=== PATIENT | male | born 1975 | race Caucasian/White ===

== ENCOUNTER 2016-04-01 14:39 | Emergency (ER) | payer BC, OTHER ==
[2016-04-01 14:45] VITALS: RESP 16; TEMP 97.3; O2SAT 98
--- NOTE | 2016-04-01 14:55 | CPEKG ---
Heart Rate: 58 RR Interval: 1034 P-R Interval: 192 QRSD Interval: 104 QT Interval: 428 QTC Interval: 421 P Henry: 45 QRS Henry: -4 T Wave Henry: 11 EKG Severity - NORMAL ECG - EKG Impression: SINUS RHYTHM Electronically Signed By: Kinga Melgar 01-Apr-2016 21:39:06
[2016-04-01 15:17] LABS: % IMMATURE GRANULYOCYTES 0.2 % (0.0-1.1); ABSOLUTE IMMATURE GRANULOCYTES 0.01 10^3/uL (0.00-0.10); ADD DIFF? NO; ADD MORPH? NO; ADD SCAN? NO; ATYPICAL LYMPHOCYTE FLAG 10 (0-99); FRAGMENT RBC FLAG 0 (0-99); HEMATOCRIT 44.6 % (40.0-51.0); HEMOGLOBIN 15.9 g/dL (13.7-17.5); LEFT SHIFT FLG 0 (0-99); LIPEMIA HEMOLYSIS FLAG 90 (0-99); MEAN CELL HEMOGLOBIN CONCENTR. 35.7 g/dL (32.4-36.7); MEAN CELL VOLUME 92.5 fL (81.5-99.8); MEAN PLATELET VOLUME 9.5 fL (8.7-11.7); PLATELET CLUMPS FLAG 10 (0-99); PLATELET COUNT 189 10^3/uL (150-400); RED BLOOD CELL COUNT 4.82 10^6/uL (4.40-6.38); RED CELL DISTRIBUTION WIDTH 11.7 % (11.5-15.2)
--- NOTE | 2016-04-01 15:21 | EDPHY ---
H & P Time Seen by Provider: 04/01/16 15:01 HPI/ROS: CHIEF COMPLAINT: Chest pain HISTORY OF PRESENT ILLNESS: The patient is a 40 year old male presenting to the ED with intermittent chest pain for the past 3 weeks. His pain is moderate in severity. It is localized to the left side and lasts for a few seconds. His pain occurs while at rest and is worse with deep inhalation. He has 0-2 episodes daily. He denies shortness of breath, increased fatigue, fever, or recent sickness. The patient was recently treated for SIBO and originally attributed his symptoms to gas. He also complains of intermittent right upper thigh pain. It is a dull ache that does not occur with exertion nor does it seem to coincide with the chest pain. He denies lower extremity swelling. He has no family cardiac history. REVIEW OF SYSTEMS: Aside from elements discussed in the HPI, a comprehensive 10-point review of systems was reviewed and is negative. Past Medical/Surgical History: TBI 2015, SIBO, High cholesterol Social History: Nonsmoker. Lives in [place]. Smoking Status: Never smoked Physical Exam: General Appearance: Alert, no distress Eyes: Pupils equal and round, no conjunctival pallor or injection ENT, Mouth: Mucous membranes moist Neck: Normal inspection Respiratory: Lungs are clear to auscultation Cardiovascular: Regular rate and rhythm Gastrointestinal: Abdomen is soft and non-tender Neurological: A&O, nonfocal, normal gait Skin: Warm and dry, no rash Extremities: Nontender, no pedal edema. Negative Homans sign. Right hip is nontender, normal range of motion without pain. Psychiatric: Mood and affect normal Constitutional: Initial Vital Signs Temperature (C) 36.3 C 04/01/16 14:41 Heart Rate 66 04/01/16 14:41 Respiratory Rate 16 04/01/16 14:41 Blood Pressure 129/79 H 04/01/16 14:41 O2 Sat (%) 98 04/01/16 14:41 O2 Delivery Mode Room Air Allergies/Adverse Reactions: No Known Allergies Allergy (Unverified 04/01/16 14:46) Home Medications: Medication Instructions Recorded Valtrex 04/01/16 Medical Decision Making - Diagnostics EKG Interpretation: EKG interpreted by me reveals normal sinus rhythm, normal axis, normal intervals , ST and T segments normal. Interpretation: normal EKG Imaging: Study: X-ray of the chest was obtained. Results: No acute disease. Images were interpreted by the radiologist, Dr. Lundberg. I viewed the images myself on the PACS system. Study: US of the right lower extremity was obtained. Results: Negative. Images were interpreted by the radiologist, Dr. Arce. I viewed the images myself on the PACS system. ED Course/Re-evaluation: The patient was placed on a ekg monitor tech. stat EKG is normal. Chest x-ray reveals no acute disease. Troponin and D-dimer are pending. This patient presents with atypical chest pain. After careful consideration and evaluation, I find no evidence of acute coronary syndrome. The patient has no risk factors for coronary disease, normal EKG and normal studies. In addition, I feel that I can safely exclude pulmonary embolism, with normal vital signs, normal oxygen saturation and normal studies. In addition there is no evidence of pneumothorax, pneumonia, aortic dissection. Differential Diagnosis: Differential diagnosis includes though it is not limited to pneumonia, pneumothorax, pulmonary embolism, aortic dissection, pericarditis, acute coronary syndrome. - Data Points Laboratory Results: Laboratory Results 04/01/16 14:45 04/01/16 14:45 Departure - Departure Disposition: Home, Routine, Self-Care Clinical Impression: Atypical chest pain Condition: Good Instructions: Chest Pain (ED) Additional Instructions: Followup with your primary care physician if your symptoms persist. Return to the Emergency Department with increased pain, shortness of breath, severe nausea , or worsening symptoms. Referrals: Darrius Sierra MD [Primary Care Provider] - As per Instructions Report Scribed for: Kinga Melgar Report Scribed by: Teresa Elizabeth Date of Report: 04/01/16 Time of Report: 15:13 Physician Review and Approval Statement: 04/01/16 15:13 Portions of this note were transcribed by a medical laboratory specialist. I personally performed the history, physical exam, and medical decision-making; and confirmed the accuracy of the information in the transcribed note.
[2016-04-01 15:34] LABS: ANION GAP 12 mEq/L (8-16); CALCIUM 9.3 mg/dL (8.5-10.4); CARBON DIOXIDE 27 mEq/l (22-31); CHLORIDE 101 mEq/L (97-110); CREATININE 1.1 mg/dL (0.7-1.3); GLOMERULAR FILTRATION RATE > 60; GLUCOSE 117 mg/dL (70-100); POTASSIUM 3.8 mEq/L (3.5-5.2); SODIUM 140 mEq/L (134-144)
--- NOTE | 2016-04-01 16:02 | DX ---
PA and Lateral Chest X-ray 1527 hours History: Chest pain 4 weeks.. Findings: Heart size and pulmonary vasculature are normal. The lungs are clear without infiltrates or effusions. There is no pneumothorax. The osseous structures are intact. Impression: Normal chest x-ray.
--- NOTE | 2016-04-01 16:09 | US ---
Ultrasound Venous Duplex/Doppler Right Leg History: Pain and swelling. Findings: Ultrasound venous duplex and Doppler imaging of the common femoral vein, femoral vein, pop liteal vein, calf veins, greater saphenous vein origin, and contralateral common femoral vein demonst rates normal compressibility, color flow, and Doppler flow without deep venous thrombosis. Impression: No deep venous thrombosis right leg. Findings and recommendations discussed with Emergency Department physician, Dr. Kinga Melgar, at 1531 hours today. Final report concurs with initial preliminary interpretation.
[2016-04-01 16:27] VITALS: BP 117/78; PULSE 69
== END 2016-04-01 16:28 | disposition home or self-care (01) ==
DX: R07.89 Other chest pain (principal)

== ENCOUNTER → 2017-12-13 | Outpatient (CLI) | payer OTHER | LOC: BMCIMAGING 09:58 | PROVIDERS: ATTEND Internal Medicine | DX: R05 Cough (principal) ==

== ENCOUNTER → 2017-12-27 | Outpatient (CLI) | payer OTHER ==
[~2017-12-27] MED LIST: IOPAMIDOL (ISOVUE-300) 100 ML BTL ONE
== END ==
LOC: FIMAGING 08:17
PROVIDERS: ATTEND Internal Medicine
DX: R10.30 Lower abdominal pain, unspecified (principal)
CPT/HCPCS: Q9967

== ENCOUNTER → 2018-08-23 | Outpatient (CLI) | payer OTHER | LOC: BMCIMAGING 14:12 ==

== ENCOUNTER 2018-09-05 17:16 | Emergency (ER) | payer OTHER | END 2018-09-05 18:40 | disposition home or self-care (01) ==